=== PATIENT | male | born 1960 | race Hispanic/Latino ===

== ENCOUNTER → 2023-12-15 | Day surgery (SDC) | payer BC ==
[~2023-12-15] MED LIST: ASPIRIN EC81 MG PO; FARXIGA10 MG PO; FLOMAX0.4 MG PO; FOLBEE PLUS TABL5 MG PO; GLIMEPIRIDE2 MG PO; HEALTH PO; IRBESARTAN300 MG PO; PROBIOTIC & AC1 EACH PO; SODIUM BICARBO650 MG PO; VITAMIN B350 MG PO; [UNRECOGNIZED DRUG - OTHER] PO
[2023-12-15] MEDS: LACTATED RINGER'S 1,000 ML ONE (07:49)
[2023-12-15 09:55] VITALS: BP 111/83; PULSE 98; RESP 16; TEMP 98.4; O2SAT 98
== END | disposition home or self-care (01) ==
LOC: OR 06:59
PROVIDERS: ATTEND Internal Medicine Gastroenterology
DX: Z09 Encounter for follow-up examination after completed treatment for conditions other than malignant neoplasm (principal); D12.3 Benign neoplasm of transverse colon; D12.5 Benign neoplasm of sigmoid colon; K57.30 Diverticulosis of large intestine without perforation or abscess without bleeding; K64.8 Other hemorrhoids; D64.9 Anemia, unspecified; I10 Essential (primary) hypertension; E11.9 Type 2 diabetes mellitus without complications; Z79.82 Long term (current) use of aspirin; Z79.84 Long term (current) use of oral hypoglycemic drugs; Z79.899 Other long term (current) drug therapy; Z68.29 Body mass index [BMI] 29.0-29.9, adult
CPT/HCPCS: 36415; 45385; 82948; J7121